=== PATIENT | male | born 1975 | race American Indian/Alaskan Native ===

== ENCOUNTER 2017-07-20 07:42 | Day surgery (SDC) | payer OTHER ==
[2017-07-20] MEDS ORDERED: NACL 0.9% 1000 ML 1,000 ML ONE (07:56)
[2017-07-20] MEDS ORDERED: NACL 0.9% 1000 ML 1,000 ML IV SCH (08:06)
[2017-07-20] MEDS ORDERED: ECOTRIN PO ONE (09:00)
[2017-07-20] MEDS ORDERED: HEPARIN 10,000 UNITS/10 ML ONE (10:51)
[2017-07-20] MEDS ORDERED: SUBLIMAZE ONE (10:51)
[2017-07-20] MEDS ORDERED: XYLOCAINE 2% INFILTRATI ONE (10:51)
[2017-07-20] MEDS ORDERED: HEPARIN/NS 5000 UNIT/500ML(CATH LAB) 1,000 ML IR ONE (10:51)
[2017-07-20] MEDS ORDERED: VERSED ONE (10:51)
[2017-07-20 11:06] LABS: Anion Gap 14 mmol/L; BUN/Creatinine Ratio 17; Blood Urea Nitrogen 19 mg/dL (9-20); Calcium 9.2 mg/dL (8.4-10.2); Carbon Dioxide 26 mmol/L (22-30); Chloride 100.2 mmol/L (98-107); Glucose 204 mg/dL (75-100); Potassium 4.6 mmol/L (3.6-5.0); Sodium 136 mmol/L (137-145)
[2017-07-20] MEDS ORDERED: NITROGLYCERIN SYRINGE 3 ML ONE (11:12)
[2017-07-20] MEDS ORDERED: CALAN ONE (11:12)
--- NOTE | 2017-07-20 12:18 | Short Stay Summary ---
Short Stay Documentation Date of service: 07/20/17 - History H&P: obtained from office - Allergies and Medications Current Medications: Allergies No Known Allergies Allergy (Unverified 03/17/16 09:51) Home Medications Medication Instructions Recorded Confirmed Last Taken Type Azilsartan Med/Chlorthalidone 1 tab PO DAILY 07/20/17 07/20/17 07/20/17 06:00 History [Edarbyclor 40-12.5 mg Tablet] 1 tab ISOSORBIDE MONOnitrate [Imdur ER] 30 mg PO DAILY 07/20/17 07/20/17 07/20/17 07: 00 History 30mg Insulin Aspart [NovoLOG Flexpen] 16 - 18 units SQ AC 07/20/17 07/20/17 07/19/17 History 18units Insulin Detemir [Levemir Flextouch] 52 units SQ BID 07/20/17 07/20/17 07/20/17 06:00 History 24units Metformin HCl [Glucophage] 3 tab PO DAILY 07/20/17 07/20/17 07/19/17 History 3 tab Nebivolol (Nf) [Bystolic (Nf)] 10 mg PO DAILY 07/20/17 07/20/17 07/20/17 06:00 History 10mg Spironolactone [Aldactone] 50 mg PO DAILY 07/20/17 07/20/17 07/20/17 History 600 amLODIPine/ATORVASTATIN 10 - 40 mg PO DAILY 07/20/17 07/20/17 07/20/17 06:00 History [Amlodipine-Atorvast 10-10 mg] 10-20mg Active Medications Sodium Chloride (Nacl 0.9% 1000 Ml) 1,000 mls @ 125 mls/hr IV DIRECT LOURDES Last Admin: 07/20/17 08:05 Dose: 125 mls/hr - Brief post op/procedure progress note Date of procedure: 07/20/17 Pre-op diagnosis: sob Post-op diagnosis: same Anesthesia: local Estimated blood loss: none Pathology: none - Disposition Condition at discharge: Good Disposition: [id number] TO HOME OR SELFCARE - Discharge Diagnoses (1) Hypertension Status: Chronic Qualifiers: Hypertension type: essential hypertension Qualified Code(s): I10 - Essential (primary) hypertension (2) Diabetes mellitus Status: Chronic Qualifiers: Diabetes mellitus type: type 1 Diabetes mellitus complication status: without complication Diabetes mellitus complication detail: D Diabetic retinopathy severity: D Proliferative retinopathy type: P Diabetes mellitus macular edema: D Diabetes mellitus snf insulin use: D Laterality: L Chronic kidney disease stage: C Qualified Code(s): E10.9 - Type 1 diabetes mellitus without complications (3) Hyperlipemia, mixed Status: Chronic (4) SOB (shortness of breath) on exertion Status: Chronic Short Stay Discharge Plan Activity: advance as tolerated Diet: low fat, low cholesterol, low salt, diabetic Special Instructions: hold Metformin (hold for two days) Follow up with: PRIMARY CARE, [Primary Care Provider] - 7 Days
--- NOTE | 2017-07-20 13:01 | Cardiac Catherization Report ---
LEFT HEART CATHETERIZATION CLINICAL INFORMATION: This is a 42-year-old gentleman with morbid obesity, hypertension, diabetes, cholesterol, mitral insufficiency who had an abnormal EKG with T-wave inversion anterolaterally with shortness of breath with minimal exertion, has normal function on echocardiogram. Given the patient's risk factors, he is here for left heart catheterization. Left heart catheterization was performed via the right radial artery, sterile technique, local anesthesia, 6-Azerbaijani radial sheath inserted. FINDINGS: Left system engaged with JL3.5 catheter with the following findings: Left main is short and large and patent. LAD is a large caliber vessel that is patent. Diagonal 1 is a [id number] caliber vessel that is patent. Circumflex is a large caliber vessel that is patent. OM1 is a large caliber vessel that is patent. RCA engaged with JR4 catheter is a large dominant vessel with moderate tortuosity, patent from proximally and distally, which bifurcates into medium caliber PDA, PLV and multiple branches that are patent. LV gram done on LINDSAY and NIELSEN view shows normal LV function. LVEDP of 18 mmHg, LV is 140/18, aortic is 130/83, no gradient across the aortic valve on pullback. The 5-Azerbaijani catheters were taken over a guidewire and 6-Azerbaijani radial sheath was discontinued. Radial dressing applied. No hematoma. No bleeding. SUMMARY: 1. Patent coronaries, short left main, LAD patent, circumflex patent, OM1 patent, RCA large, patent and dominant with normal LV function. 2. Continue medical management. Hold metformin for 48 hours. JOB# [id number] SESENCE/RANDI
[2017-07-20 13:56] VITALS: BP 129/78
== END 2017-07-20 14:10 | disposition home or self-care (01) ==
LOC: CATHLABREC 07:42
PROVIDERS: ATTEND Internal Medicine
DX: R94.31 Abnormal electrocardiogram [ECG] [EKG] (principal); R06.02 Shortness of breath; I10 Essential (primary) hypertension; E11.9 Type 2 diabetes mellitus without complications; E78.5 Hyperlipidemia, unspecified; Z79.899 Other long term (current) drug therapy; Z79.82 Long term (current) use of aspirin
CPT/HCPCS: 36415; 80048; 82962; 93005; 93010; 93458; 99156; C1894; J1644; J2250; J3010; J7030; Q9967

== ENCOUNTER 2017-09-21 15:40 | Emergency (ER) | payer OTHER ==
[2017-09-21 16:04] VITALS: BP 176/107
[2017-09-21] MEDS ORDERED: ASPIRIN PO ONE (16:04)
[2017-09-21 16:44] LABS: Basophils % (Auto) 0.8 % (0.0-1.8); Eosinophils % (Auto) 1.9 % (0.0-4.3); Hematocrit 37.1 % (35.5-45.6); Hemoglobin 12.3 gm/dl (11.8-15.2); Mean Corpuscular HGB Conc 33 % (32-34); Mean Corpuscular Hemoglobin 27 pg (28-32); Mean Corpuscular Volume 80 fl (84-94); Platelet Count 332 K/mm3 (140-440); Red Blood Count 4.62 M/mm3 (3.65-5.03); Red Cell Distribution Width 14.7 % (13.2-15.2)
[2017-09-21 16:59] LABS: Anion Gap 17 mmol/L; BUN/Creatinine Ratio 10; Blood Urea Nitrogen 12 mg/dL (9-20); Calcium 9.1 mg/dL (8.4-10.2); Carbon Dioxide 27 mmol/L (22-30); Chloride 97.5 mmol/L (98-107); Glucose 300 mg/dL (75-100); Potassium 4.1 mmol/L (3.6-5.0); Sodium 137 mmol/L (137-145)
== END 2017-09-21 19:31 | disposition left against medical advice (07) ==
LOC: ED 15:40
DX: R42 Dizziness and giddiness (principal); R06.02 Shortness of breath; Z53.21 Procedure and treatment not carried out due to patient leaving prior to being seen by health care provider
CPT/HCPCS: 36415; 80048; 82962; 84484; 85025; 93005; 93010

== ENCOUNTER 2019-11-21 07:06 | Outpatient (CLI) | payer BC ==
--- NOTE | 2019-11-21 07:53 | Ultrasound Report ---
ULTRASOUND RENAL INDICATION: N18.3Chronic kidney disease, stage 3 (moderate). COMPARISON: No relevant prior imaging study available. FINDINGS: RIGHT KIDNEY: Size: 11.6 cm. Echogenicity: Normal. Cortical thickness: Normal. Stones: None. Hydronephrosis: None. Cyst or mass: None. LEFT KIDNEY: Size: 11.2 cm. Echogenicity: Normal. Cortical thickness: Normal. Stones: None. Hydronephrosis: None. Cyst or mass: None. Urinary Bladder: No significant abnormality. Free Fluid: None. Additional Findings: None. IMPRESSION 1. No acute sonographic abnormality of the kidneys. Signer Name: Bharathi Cervantes MD Signed: 11/21/2019 7:49 AM Workstation Name: [employer] [employer]
== END 2019-11-21 07:07 | disposition home or self-care (01) ==
LOC: US 07:06
PROVIDERS: ATTEND Specialist
DX: N18.3 Chronic kidney disease, stage 3 (moderate) (principal)
CPT/HCPCS: 76770